=== PATIENT | female | born 1970 | race Caucasian/White ===

== ENCOUNTER 2017-02-06 14:31 | Observation (INO) ==
--- NOTE | 2017-02-06 14:48 | Emergency Department Note ---
Disposition Clinical Impression: Chest pain Disposition: Admitted As Inpatient Condition: Good General Adult HPI - General Chief complaint: ED Chest Pain Stated complaint: Chest Pain SOB Time Seen by Provider: 02/06/17 14:45 Source: patient Limitations: no limitations - History of Present Illness Pain Scale: 5 - Related Data Home Medications Medication Instructions Recorded Confirmed No Known Home Drugs 02/06/17 02/06/17 Allergies Allergy/AdvReac Type Severity Reaction Status Date / Time aspirin AdvReac Wrong entry Verified 02/06/17 18:46 Past Medical History - Past Medical History Medical history: Reports: no medical history Psychiatric history: Reports: depression - Social History Smoking Status: Never smoker Smokeless Tobacco Status: No Alcohol use: Reports: none Drug use: Reports: none Physical Exam - General Limitations: no limitations General appearance: alert, in no apparent distress Course Vital Signs Temperature 98 F 02/06/17 14:33 Pulse Rate 99 02/06/17 14:33 Respiratory Rate 16 02/06/17 14:33 Blood Pressure 185/118 02/06/17 14:33 O2 Sat by Pulse Oximetry 97 02/06/17 14:33 Temperature 98.0 F 02/06/17 19:40 Pulse Rate 78 02/06/17 19:40 Respiratory Rate 16 02/06/17 19:40 Blood Pressure 153/81 02/06/17 19:40 O2 Sat by Pulse Oximetry 98 02/06/17 19:40 Oxygen Delivery Oxygen Delivery Room Air Medical Decision Making - Lab Data Result diagrams: 02/06/17 15:06 02/06/17 15:06 Lab Results 02/06/17 02/06/17 02/06/17 Range/Units 15:06 15:06 15:06 WBC 7.8 (4.3-11.1) K/mcL RBC 4.49 (3.82-4.97) M/mcL Hgb 13.0 (11.5-15.4) g/dL Hct 37.5 (35.3-44.9) % MCV 83.5 (83.0-100.0) fL MCH 29.0 (28.0-33.3) pg MCHC 34.7 (31.6-35.5) g/dL RDW 12.3 (11.5-14.5) % Plt Count 222 (140-400) K/mcL MPV 9.8 (9.4-12.4) fL Immature Gran % 0.3 (0-4) % Seg Neutrophils % 54.9 % Lymphocytes % 34.6 % Monocytes % 7.7 % Eosinophils % 2.1 % Basophils % 0.4 % Neutrophils # 4.3 (1.6-8.9) K/mcL Lymphocytes # 2.7 (0.6-4.6) K/mcL Monocytes # 0.6 (0.0-1.3) K/mcL Eosinophils # 0.2 (0.0-0.6) K/mcL Basophils # 0.0 (0.0-0.2) K/mcL D-Dimer (0-500) ng/mLFEU Sodium 139 (136-145) mEq/L Potassium 4.0 (3.5-4.5) mEq/L Chloride 108 (98-109) mEq/L Carbon Dioxide 21 (19-29) mEq/L BUN 12 (7-20) mg/dL Creatinine 0.82 (0.57-1.11) mg/dL Est GFR ( Amer) > 60 (> 60) Est GFR (Non-Af Amer) > 60 (> 60) BUN/Creatinine Ratio 15 (6-26) Glucose 95 (70-99) mg/dL Calculated Osmolality 288 (280-300) Calcium 8.5 L (8.6-10.8) mg/dL Troponin I (0-0.03) ng/mL B-Natriuretic Peptide < 10 (0-100) pg/mL 02/06/17 02/06/17 Range/Units 15:06 15:06 WBC (4.3-11.1) K/mcL RBC (3.82-4.97) M/mcL Hgb (11.5-15.4) g/dL Hct (35.3-44.9) % MCV (83.0-100.0) fL MCH (28.0-33.3) pg MCHC (31.6-35.5) g/dL RDW (11.5-14.5) % Plt Count (140-400) K/mcL MPV (9.4-12.4) fL Immature Gran % (0-4) % Seg Neutrophils % % Lymphocytes % % Monocytes % % Eosinophils % % Basophils % % Neutrophils # (1.6-8.9) K/mcL Lymphocytes # (0.6-4.6) K/mcL Monocytes # (0.0-1.3) K/mcL Eosinophils # (0.0-0.6) K/mcL Basophils # (0.0-0.2) K/mcL D-Dimer 240 (0-500) ng/mLFEU Sodium (136-145) mEq/L Potassium (3.5-4.5) mEq/L Chloride (98-109) mEq/L Carbon Dioxide (19-29) mEq/L BUN (7-20) mg/dL Creatinine (0.57-1.11) mg/dL Est GFR ( Amer) (> 60) Est GFR (Non-Af Amer) (> 60) BUN/Creatinine Ratio (6-26) Glucose (70-99) mg/dL Calculated Osmolality (280-300) Calcium (8.6-10.8) mg/dL Troponin I 0.00 (0-0.03) ng/mL B-Natriuretic Peptide (0-100) pg/mL Attestation Statement - Attestation Attestation: I examined this patient and my medical decision-making was reviewed with the LUBRICATING SPECIALIST/PA/Advanced Practice Nurse/Resident Physician. I agree with the documented findings, disposition and treatment plan as described except to the extent set forth below. [id number] time provided Patient presents with chest pain. She appears in no acute distress on exam. EKG reviewed by me. Triage vitals indicate hypertension
[2017-02-06] MEDS: Nitroglycerin 0.4 MG TAB.SUBL SL ONE ×3 (15:09→15:23)
[2017-02-06 15:15] LABS: Basophils % 0.4 %; Eosinophils # 0.2 K/mcL (0.0-0.6); Eosinophils % 2.1 %; Hematocrit 37.5 % (35.3-44.9); Immature Granulocytes % 0.3 % (0-4); Lymphocytes # 2.7 K/mcL (0.6-4.6); Lymphocytes % 34.6 %; Mean Corpuscular HGB Conc 34.7 g/dL (31.6-35.5); Mean Corpuscular Volume 83.5 fL (83.0-100.0); Mean Platelet Volume 9.8 fL (9.4-12.4); Monocytes # 0.6 K/mcL (0.0-1.3); Monocytes % 7.7 %; Neutrophils # 4.3 K/mcL (1.6-8.9); Platelet Count 222 K/mcL (140-400); Red Blood Count 4.49 M/mcL (3.82-4.97); Red Cell Distribution Width 12.3 % (11.5-14.5); Segmented Neutrophils % 54.9 %
[2017-02-06 15:36] LABS: BUN/Creatinine Ratio 15 (6-26); Blood Urea Nitrogen 12 mg/dL (7-20); Calcium 8.5 mg/dL (8.6-10.8); Carbon Dioxide 21 mEq/L (19-29); Chloride 108 mEq/L (98-109); Glucose 95 mg/dL (70-99); Osmolality,Calculated 288 (280-300); Sodium 139 mEq/L (136-145); eGFR For African Americans > 60 (> 60); eGFR For Non-African Americans > 60 (> 60)
--- NOTE | 2017-02-06 16:03 | Emergency Department Note ---
Disposition Clinical Impression: Chest pain Qualifiers: Chest pain type: unspecified Qualified Code(s): R07.9 - Chest pain, unspecified Disposition: Admitted As Inpatient Condition: Good Referrals: NO,PCP [Primary Care Provider] - Forms: ED Satisfaction Letter Chest Pain HPI - General Chief Complaint: ED Chest Pain Stated Complaint: Chest Pain SOB Time Seen by Provider: 02/06/17 14:45 Source: patient Limitations: no limitations - History of Present Illness HPI Narrative: Patient here for evaluation of chest pain. Patient states the chest pain began on and has been getting worse in nature. Chest pain is in the middle of her chest described as a pressure that radiates to the left arm as well as the neck. Patient describes a chest pressure that is worse with exertion as well as emotional stress. Patient describes becoming dyspneic upon walking. Patient was told that she had high blood pressure, hypercholesterol, hyperlipidemia previously but chose not to follow up with any kind of care. Presents significantly hypertensive with 6 out of 10 chest pain that both resolved after 3 sublingual nitroglycerin. Patient does not smoke, is not on control, does not follow up previous physician has not had previous cardiac workup. Patient is allergic to aspirin. Severity scale (1-10): 5 - Related Data Home Medications Medication Instructions Recorded Confirmed No Known Home Drugs 02/06/17 02/06/17 Allergies Allergy/AdvReac Type Severity Reaction Status Date / Time aspirin Allergy Unconscious Verified 02/06/17 14:32 All systems ED: reviewed and negative except as stated. Constitutional: Denies: fever, chills Eyes: Denies: eye pain Cardiovascular: Reports: chest pain, dyspnea on exertion Respiratory: Denies: cough, dyspnea Gastrointestinal: Denies: abdominal pain, nausea, vomiting Genitourinary: Denies: urgency, dysuria Musculoskeletal: Denies: back pain Psychiatric: Reports: anxiety Endocrine: Denies: fatigue Chest Pain PMH - Past Medical History Medical history: Reports: no medical history Psychiatric history: Reports: depression - Social History Smoking Status: Never smoker Alcohol use: Reports: none Drug use: Reports: none Physical Exam - General Limitations: no limitations General appearance: alert, in no apparent distress - Head Head exam: atraumatic, normocephalic - Eye Eye exam: Present: normal appearance - ENT ENT exam: normal exam, normal oropharynx - Neck Neck exam: Present: normal inspection, full ROM - Chest Chest inspection: Present: normal inspection, symmetric chest wall rise. Absent : tenderness - Respiratory Respiratory exam: Present: normal lung sounds bilaterally. Absent: respiratory distress, wheezes - Cardiovascular Cardiovascular exam: Present: regular rate, normal rhythm - Abdominal Exam Abdominal exam: Present: soft, Non-Tender - Extremities Exam Extremities exam: Present: normal inspection. Absent: tenderness - Back Exam Back exam: Present: normal inspection. Absent: tenderness - Neurological Exam Neurological exam: Present: alert, oriented X3, CN II-XII intact - Psychiatric Psychiatric exam: Present: normal affect, normal mood - Skin Skin exam: Present: warm, dry, intact Course - Reevaluation(s) Reevaluation #1: EKG and blood work without acute changes. Patient tells concerning story including uncontrolled risk factors and family history. . - Consultations Consultation #1: Discussed with hospitalist Fabricio. Patient accepted. Vital Signs Temperature 98 F 02/06/17 14:33 Pulse Rate 99 02/06/17 14:33 Respiratory Rate 16 02/06/17 14:33 Blood Pressure 185/118 02/06/17 14:33 O2 Sat by Pulse Oximetry 97 02/06/17 14:33 Temperature 98 F 02/06/17 14:33 Pulse Rate 80 02/06/17 16:47 Respiratory Rate 13 02/06/17 16:47 Blood Pressure 157/113 02/06/17 16:47 O2 Sat by Pulse Oximetry 97 02/06/17 16:47 Oxygen Delivery Oxygen Delivery Room Air Chest Pain - Lab Data Result diagrams: 02/06/17 15:06 02/06/17 15:06 Lab Results 02/06/17 02/06/17 02/06/17 Range/Units 15:06 15:06 15:06 WBC 7.8 (4.3-11.1) K/mcL RBC 4.49 (3.82-4.97) M/mcL Hgb 13.0 (11.5-15.4) g/dL Hct 37.5 (35.3-44.9) % MCV 83.5 (83.0-100.0) fL MCH 29.0 (28.0-33.3) pg MCHC 34.7 (31.6-35.5) g/dL RDW 12.3 (11.5-14.5) % Plt Count 222 (140-400) K/mcL MPV 9.8 (9.4-12.4) fL Immature Gran % 0.3 (0-4) % Seg Neutrophils % 54.9 % Lymphocytes % 34.6 % Monocytes % 7.7 % Eosinophils % 2.1 % Basophils % 0.4 % Neutrophils # 4.3 (1.6-8.9) K/mcL Lymphocytes # 2.7 (0.6-4.6) K/mcL Monocytes # 0.6 (0.0-1.3) K/mcL Eosinophils # 0.2 (0.0-0.6) K/mcL Basophils # 0.0 (0.0-0.2) K/mcL D-Dimer (0-500) ng/mLFEU Sodium 139 (136-145) mEq/L Potassium 4.0 (3.5-4.5) mEq/L Chloride 108 (98-109) mEq/L Carbon Dioxide 21 (19-29) mEq/L BUN 12 (7-20) mg/dL Creatinine 0.82 (0.57-1.11) mg/dL Est GFR ( Amer) > 60 (> 60) Est GFR (Non-Af Amer) > 60 (> 60) BUN/Creatinine Ratio 15 (6-26) Glucose 95 (70-99) mg/dL Calculated Osmolality 288 (280-300) Calcium 8.5 L (8.6-10.8) mg/dL Troponin I (0-0.03) ng/mL B-Natriuretic Peptide < 10 (0-100) pg/mL 02/06/17 02/06/17 Range/Units 15:06 15:06 WBC (4.3-11.1) K/mcL RBC (3.82-4.97) M/mcL Hgb (11.5-15.4) g/dL Hct (35.3-44.9) % MCV (83.0-100.0) fL MCH (28.0-33.3) pg MCHC (31.6-35.5) g/dL RDW (11.5-14.5) % Plt Count (140-400) K/mcL MPV (9.4-12.4) fL Immature Gran % (0-4) % Seg Neutrophils % % Lymphocytes % % Monocytes % % Eosinophils % % Basophils % % Neutrophils # (1.6-8.9) K/mcL Lymphocytes # (0.6-4.6) K/mcL Monocytes # (0.0-1.3) K/mcL Eosinophils # (0.0-0.6) K/mcL Basophils # (0.0-0.2) K/mcL D-Dimer 240 (0-500) ng/mLFEU Sodium (136-145) mEq/L Potassium (3.5-4.5) mEq/L Chloride (98-109) mEq/L Carbon Dioxide (19-29) mEq/L BUN (7-20) mg/dL Creatinine (0.57-1.11) mg/dL Est GFR ( Amer) (> 60) Est GFR (Non-Af Amer) (> 60) BUN/Creatinine Ratio (6-26) Glucose (70-99) mg/dL Calculated Osmolality (280-300) Calcium (8.6-10.8) mg/dL Troponin I 0.00 (0-0.03) ng/mL B-Natriuretic Peptide (0-100) pg/mL Heart Score - Score History: Highly Suspicious EKG: Non Specific repolarisation Disturbance Age: 45-65 Risk Factors: Equal/Greater than 3 risk factor or history of atherosclerotic disease Troponin: Less than normal limit HEART Score Total: 6
[2017-02-06] MEDS ORDERED: Nitroglycerin 1 INCH/GM PACKET TP ONE (16:29)
[2017-02-06] MEDS ORDERED: *HR* Morphine 2 MG/ML SYRINGE IVP PRN (17:50)
[2017-02-06] MEDS ORDERED: *HR* OxyCODONE Immed Rel 5 MG TABLET PO PRN (17:50)
[2017-02-06] MEDS ORDERED: Naloxone 0.4 MG/ML INJ IVP PRN (17:50)
[2017-02-06] MEDS ORDERED: Acetaminophen 325 MG TABLET PO PRN (17:50)
[2017-02-06] MEDS ORDERED: Ondansetron 4 MG/2 ML VIAL IVP PRN (17:50)
[2017-02-06] MEDS ORDERED: GI Cocktail 40 ML EACH PO ONE (17:56)
[2017-02-06] MEDS ORDERED: Ondansetron 4 MG/2 ML VIAL IVP ONE (18:17)
[2017-02-06] MEDS ORDERED: *HR* HYDROmorphone (PF) 1 MG/ML SYRINGE IV ONE (18:17)
--- NOTE | 2017-02-06 18:19 | Internal Med History&Physical ---
Date of Encounter: 02/06/17 Time of Encounter: 18:19 Assessment and Plan (1) Hypertensive urgency Current visit: Yes Status: Acute BP on presentation 185/118 , improved after 2 nitros Start patient on HCTZ it is likely her chest pain is due to this EKG is non-ischemic CXR is WNL Patient with multiple risk factors and significant Family hx-her younger brother had triple bypass PATIENT HAS NOT TAKEN ASPIRIN since the age of 3, and this is because her mother told her not to, after she ingested a bottle of ASA at the age of 3 Will give ASA 325mg STAT as its benefits outweigh the risks Continue ASA 81mg daily Trend trops Obtain ECHO and Stress test a.m NPO frm MN Check for other risk factors, check A1C, Lipid panel Stephen of care discussed with patient and her spouse at the bedside, verbalized understanding (2) Chest pain Current visit: Yes Status: Acute Qualifiers: Chest pain type: unspecified Qualified Code(s): R07.9 - Chest pain, unspecified Internal Medicine - H&P: HPI Chief complaint: Chest pain Admitted From: Home Plans for Post Hospital Care: Home History of present illness: Ms. White is a 46 year old female Evaluated at bedside with her spouse Admitted with complains of chest pain, started 3 days prior to presentation, sub -sternal location, pounding/burning in nature, radiates to the neck and left arm. Associated with SOB on exertion. Pain scale 1-5. Not associated with meals. She is a known PMH of HTN, HLD, Obesity she does not follow up with care with any physician She was recently on 02/03 told at her school during a free michael check that she is hypertensive Patient thinks her chest pain feels like gas and has not been completely relieved by nitro Patient takes no medications at home and states she has allergies to aspirin She denies diaphoresis, palpitations, or neurological complains She denies GI complains ROS is otherwise unremarkable Of note, VS have revealed elevated blood pressures up to 185/11) on admission CXR is no acute processes; EKG shows non-ischemic findings. CBC, chem, initial trop negative Past Med Surg Social Fam HX - Past Medical History Medical history: hyperlipidemia, hypertension Psychiatric history: depression - Social History Smoking Status: Never smoker Smokeless Tobacco Status: No Alcohol use: none Drug use: none - Family History Brother Hx Family Cardiac Disorders: Yes Internal Medicine - H&P: Meds No Known Home Drugs 02/06/17 [History] Allergies aspirin Adverse Reaction (Verified 02/06/17 18:46) Wrong entry Patient reports consuming a bottle of aspirin as a 3 year old and was told by her mother never to use Aspirin. All Systems PM: A 10-system review of systems was performed and is negative for pertinent findings except as documented above in the HPI. - Constitutional Constitutional: no chills, no fever(s), no night sweats - EENT Eyes: no change in vision, no discharge, no pain, no photophobia Ears: no ear discharge, no ear pain, no tinnitus Nose, mouth and throat: no dysphagia, no nasal discharge, no neck pain, no sore throat - Cardiovascular Cardiovascular ROS IM: as per HPI - Respiratory Respiratory: no cough, no dyspnea, no wheezing, no excessive phlegm production - Gastrointestinal Gastrointestinal: no abdominal pain, no diarrhea, no hematemesis, no hematochezia, no melena, no nausea, no vomiting - Genitourinary Genitourinary: no change in urinary stream, no dysuria, no flank pain, no hematuria - Musculoskeletal Musculoskeletal ROS IM: no numbness, no tingling - Integumentary Integumentary IM: no rash, no unusual bruising - Neurological Neurological ROS: no confusion, no convulsions, no focal weakness, no numbness, no tingling, no tremor(s) - Hematologic/Lymphatic Hematologic/Lymphatic: no easy bruising - Constitutional Vitals: Temp Pulse Resp BP Pulse Ox 98 F 80 14 157/90 98 02/06/17 14:33 02/06/17 17:48 02/06/17 17:48 02/06/17 17:48 02/06/17 17:48 Physical Exam Gen: Morbidly Obese, not in any form of distress, speaks full sentences VS on admission, BP 185/118 to 157/113,HR WNL, O2Sat WNL HEENT: Moist oral mucosa, MIKA, EOMI, NO JVD Chest: CTAB, no chest wall tenderness Heart: S1, S2 only, no m/g/r Abdomen: Obese, not tender, no palpably enlarged organs Extremities: No edema General appearance: Present: A&O X 3, pleasant, no acute distress Internal Med - H&P Results - Labs CBC & Chem 7: 02/06/17 15:06 02/06/17 15:06 Labs: Labs and Imaging reviewed CBC/Chem Unremarkable CXR: Clear EKG: NSR, no ischemic changes - EKG Data -: EKG Interpreted by Myself EKG shows normal: sinus rhythm, axis (Normal) Rate: normal - EKG Data Prior EKG available for review: no Interpretation IM: normal EKG
[2017-02-06] MEDS ORDERED: Aspirin 325 MG TABLET PO ONE (18:44)
[2017-02-06] MEDS: hydroCHLOROthiazide 25 MG TABLET PO SCH (20:28)
[2017-02-06] MEDS: *HR* Heparin 5,000 UNIT/ML VIAL SQ SCH (21:56)
[2017-02-07 04:52] LABS: Hemoglobin A1C 4.7 %
[2017-02-07 04:54] LABS: Chol/HDL Ratio 5.1 (0-4.9)
[2017-02-07] MEDS: *HR* Heparin 5,000 UNIT/ML VIAL SQ SCH (05:23)
[2017-02-07] MEDS ORDERED: Regadenoson 0.4 MG/5 ML SYRINGE IVP ONE (07:19)
[2017-02-07] MEDS ORDERED: Aspirin 81 MG TAB.CHEW PO SCH (09:00)
[2017-02-07] MEDS: hydroCHLOROthiazide 25 MG TABLET PO SCH (09:35)
[2017-02-07 10:48] VITALS: BP 138/89
--- NOTE | 2017-02-07 11:30 | Nuclear Medicine Stress Report ---
Exercise Nuclear Stress Name: Seble Sharma Masters Date of Study: 02/07/2017 Date: 1970 Ht: 66.0 in Medical Record#: [id number] Age: 46 Wt: 250.0 lb Gender: Female Order #: [id number] [facility] Supervising Provider: Tad Sargent CNP Reading Physician: Boni Mujica DO, FACC, FASE, FASNC Ordering Physician: Jonah Robledo MD Primary Care Physician: Cedrick Mccarthy MD Stress Technologist: Catrachita La RRT, CPFT Sprayer Machine: Dasha Joseph Indications: Chest Pain Impression: Exercise ECG is negative for ischemia. Good exercise capacity. No chest pain. Gated EF = 72%. Perfusion imaging was negative for ischemia or infarct. Stress Test Summary: Stress Test Type: Treadmill Protocol: Jose David Baseline Information: Initial Heart Rate: 92 Blood Pressure: 122/82 Stress Information: Stress Time: 8 min 10 sec Test Terminated Due to (primary): Dyspnea Fatigue Maximum Blood Pressure: 188/72 Maximum Heart Rate: 149 Percent Maximum Heart Rate Achieved: 87 Double Product: [id number] METS Reached: 10.1 Symptoms: Shortness of breath, Fatigue Nuclear Summary: SPECT myocardial perfusion imaging using Tc99m Sestamibi given intravenously was performed at rest and following cardiac stress testing. The resting images were obtained following initial dose of 11.3 mCi. Following stress an additional dose of 30.2 mCi was given at peak exercise or 30 seconds post regadenoson infusion. Medication Given: Time Medication Dose Units Route Findings: Stress Note * Resting ECG demonstrated normal sinus rhythm. * Rare PVCs noted prior to exam beginning. * Exercise ECG is negative for ischemia. * Occasional PVCs noted during early exercise, none thereafter. * The exercise capacity was good. * Patient had no chest pain during stress. * Normal hemodynamic responses to exercise. Study Quality * Study quality is good. Gated EF % * Gated EF = 72%. Left Ventricle * The left ventricle is not dilated. LVEDV = 93 mL. NORMALS * Normal wall motion. * Normal segmental perfusion in rest. * Normal segmental perfusion in stress. TID * No evidence of transient ischemic dilatation. TID ratio = 0.74. Lung Uptake * There is no evidence of increase lung uptake. Updated by Boni Mujica DO, FACChip, ANN, HERIBERTO on 02/07/2017 11:25:37 AM electronically signed on 02/07/2017 11:27:04 AM with status of Final
--- NOTE | 2017-02-07 12:09 | Discharge Summary ---
Date of Encounter: 02/07/17 Time of Encounter: 12:07 - Discharge Diagnosis (1) Hypertensive urgency Priority: Primary Status: Resolved (2) Chest pain Priority: Primary Status: Acute Qualifiers: Chest pain type: unspecified Qualified Code(s): R07.9 - Chest pain, unspecified - Discharge Medications Prescriptions: Aspirin 81 mg PO DAILY #30 tab.chew Hydrochlorothiazide 25 mg PO DAILY #30 tablet Home Medications: Aspirin 81 mg PO DAILY #30 tab.chew 02/07/17 [Rx] Hydrochlorothiazide 25 mg PO DAILY #30 tablet 02/07/17 [Rx] Allergies/Adverse Reactions: Allergies aspirin Adverse Reaction (Verified 02/06/17 18:46) Wrong entry Patient reports consuming a bottle of aspirin as a 3 year old and was told by her mother never to use Aspirin. Procedures/tests Complete & Pending: Procedures Performed prior 72 hours Category Date Time Status NM hiro perf SPECT multi [NM] Routine Exams 02/06/17 17:52 Taken EV echocardiogram Routine Y 02/07/17 17:53 Completed SP exercise nuclear stress Routine Y 02/07/17 07:30 Completed Date of admission: 02/06/17 17:09 Primary care physician: PCP ALYSON Discharging clinician: Nick Small Anticipated date of discharge: 02/07/17 - Patient Status Disposition: Home, Self-Care Condition: Good Functional capacity at discharge: independent ambulation Overall status at discharge: patient is back to baseline - Discharge Instructions Instructions: Hydrochlorothiazide (By mouth), Aspirin (By mouth), Hypertensive Crisis (DC) Follow Up With: NO,PCP [Primary Care Provider] - (Please follow up at [facility] on 02/09/17 as previously scheduled.) - Diet and Activity Activity: resume usual activities as tolerated Diet: low salt diet Interval History: See below Hospital course: Ms. White is a 46 year old female with recently diagnosed HTN and HLD who presented with complains of chest pain BP was found to be elevated and uncontrolled at presentation Chest pain work up unremarkable, ECHO and Stress test negative for ischemia or valvular abnormalities HTN was controlled with HCTZ, discharge on same A1C WNL, Lipid panel with mild Hypertriglyceridemia,lifestyle modification encouraged Stable for discharge home, follow up with PCP - Time Spent with Patient Total time spent providing and/or coordinating discharge services: Less than 30 minutes - Constitutional Vitals: Temp Pulse Resp BP Pulse Ox 97.4 F L 84 17 138/89 93 L 02/07/17 10:45 02/07/17 10:45 02/07/17 10:45 02/07/17 10:45 02/07/17 10:45 General appearance: Present: A&O X 3, pleasant, no acute distress, obese - Head Head exam: Present: atraumatic, normocephalic - Eye Eye exam: Present: PERRL, conjuntiva pink, sclera anicteric Pupils: Present: PERRL - Neck Neck exam general surgery: Present: supple, trachea midline. Absent: lymphadenopathy - Respiratory Respiratory exam: Present: CTAB. Absent: accessory muscle use, rales, rhonchi, wheezes - Cardiovascular Cardiovascular exam: Present: RRR, +S1, +S2. Absent: diastolic murmur, gallop, rubs, systolic murmur - GI/Abdominal GI/Abdominal exam: Present: normal bowel sounds, soft, no peritoneal signs. Absent: distended, tenderness - Extremities Exam Extremities exam: Present: warm, radial pulses palpable and symetrical. Absent : calf tenderness, cyanotic, pedal edema - Neurological Exam Neurological exam: Present: CN II-XII intact, oriented X3, no focal deficits. Absent: pronater drift, facial droop, speech deficit - Skin Skin exam: Present: dry, intact
--- NOTE | 2017-02-07 12:24 | ECHO - Doppler Report ---
Echocardiogram Name: Seble Sharma Masters Date of Study: 02/07/2017 Date: 1970 Ht: 66.0 in Medical Record#: [id number] Age: 46 Wt: 259.0 lb Gender: Female BSA: 2.23 Order #: [id number] Location: [facility] Room #: [id number] Reading Physician: Boni Mujica DO, NAYA, HERIBERTO JUAREZ Surveillance Inspector: Afshan Beasley Ordering Physician: Nick Small MD Primary Physician: Cedrick Mccarthy MD Indications: Chest pain Impressions: Technically sub-optimal due to poor echocardiographic windows. LVEF 60-65%. Mild concentric left ventricular hypertrophy. Normal LV chamber size and function. Mild left ventricular diastolic dysfunction. Normal right ventricular structure and function. Unable to estimate RVSP due to lack of adequate TR jet. No significant valvular dysfunction. Left Ventricular Wall Motion: Rest Echo Findings All wall segments showed normal motion. Findings: Study Quality * Technically sub-optimal due to poor echocardiographic windows. ECG Findings * Normal sinus rhythm. Left Ventricle * LVEF 60-65%. * Normal LV chamber size and function. * Mild concentric left ventricular hypertrophy. * Mild left ventricular diastolic dysfunction. Right Ventricle * Normal right ventricular structure and function. Left Atrium * Normal left atrial size. Right Atrium * Normal right atrial size. Interatrial Septum * Interatrial septum not well evaluated. Aortic Valve * Aortic valve not well visualized. * No aortic regurgitation. * No aortic stenosis. Mitral Valve * Normal mitral valve structure and function. * No mitral regurgitation. * No mitral stenosis. Tricuspid Valve * Normal tricuspid valve structure and function. * No tricuspid regurgitation. * Unable to estimate RVSP due to lack of adequate TR jet. Pulmonic Valve * Pulmonic valve is not well visualized. * No pulmonic regurgitation. Aorta * Normally sized aortic root. Pericardium * The pericardium appears normal. IVC * Normal IVC dimensions and inspiratory collapse. Pulmonary Artery * Normal visualized portions of the main pulmonary artery. History Family History of CAD Measurements: BP: 122/ 60 2D Normal Values RVIDd: 2.90 cm <2.7 cm IVSd: 1.30 cm 0.6 - 1.0 cm LVIDd: 4.40 cm 3.7 - 5.6 cm LVPWd: 1.30 cm 0.6 - 1.1 cm LVIDs: 3.00 cm 1.5 - 3.6 cm AO: 2.60 cm < 4.0 cm LA: 3.00 cm 2.0 - 4.0cm %FS: 31.80 cm >25 % LA volume: 41 Mitral Valve Peak E:.56 m/sec Peak A:.79 m/sec E/A Ratio:0.7 Peak E' Lat Patric:7.51 cm/s Peak E' Med Patric:8.68 cm/s E/E' Lat Ratio:7.5 Tricuspid Valve TV Regurg Peak Grad: 4.00mmHg TV Regurg Peak Patric: 1.06m/sec Updated by Boni Mujica DO, NAYA, HERIBERTO JUAREZ on 02/07/2017 12:19:26 PM electronically signed on 02/07/2017 12:20:07 PM with status of Final Wall Motion [place]: 1=Normal, 2=Hypokinesis, 3=Akinesis, 4=Dyskinesis, 5=Aneurysmal, 6=Hyperkinetic, X=Not Visualized (Blank)=Missing
--- NOTE | 2017-02-07 15:35 | Electrocardiograph Report ---
[place] [id number] Test Date: 2017-02-06 Pat Name: Seble Masters Department: 102 Room: 3B Gender: F Procurement Engineer: : 1970 Requested By: Nick Small Order Number: [id number] Reading MD: Jose David Escamilla MD Measurements Intervals [place] Rate: 100 P: 25 [place]: 164 QRS: 12 QRSD: 85 T: 28 QT: 337 QTc: 394 Interpretive Statements SINUS TACHYCARDIA Poor R wave progression BASELINE ARTIFACT Electronically Signed On 02-07-2017 15:33:41 EDT by Jose David Escamilla MD
--- NOTE | 2017-02-07 15:39 | Electrocardiograph Report ---
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
== END 2017-02-07 12:30 | disposition home or self-care (01) ==
LOC: EMEROO 14:31 → 3BNU 14:31 → SUATTDRO 17:09 → 3BNU 19:16
PROVIDERS: ADMIT Nurse Practitioner Acute Care; ATTEND Internal Medicine

== ENCOUNTER 2021-12-27 10:23 | Observation (INO) ==
[2021-12-27] MEDS ORDERED: Ondansetron 4 MG/2 ML VIAL IVP ONE (10:48)
[2021-12-27] MEDS ORDERED: 0.9 % Sodium Chloride 1,000 ML IV ONE (10:48)
[2021-12-27 11:13] LABS: Basophils % 0.3 %; Eosinophils # 0.1 K/mcL (0.0-0.6); Eosinophils % 1.1 %; Hematocrit 39.2 % (35.3-44.9); Immature Granulocytes % 0.4 % (0-4); Lymphocytes # 2.3 K/mcL (0.6-4.6); Lymphocytes % 20.6 %; Mean Corpuscular HGB Conc 35.7 g/dL (31.6-35.5); Mean Corpuscular Hemoglobin 29.5 pg (28.0-33.3); Mean Corpuscular Volume 82.5 fL (83.0-100.0); Mean Platelet Volume 9.9 fL (9.4-12.4); Monocytes # 0.6 K/mcL (0.0-1.3); Monocytes % 5.5 %; Neutrophils # 8.1 K/mcL (1.6-8.9); Platelet Count 232 K/mcL (140-400); Red Blood Count 4.75 M/mcL (3.82-4.97); Red Cell Distribution Width 12.4 % (11.5-14.5); Segmented Neutrophils % 72.1 %; White Blood Count 11.2 K/mcL (4.3-11.1)
[2021-12-27 11:33] LABS: Alanine Aminotransferase 17 Units/L (7-52); Albumin 4.5 g/dL (3.5-5.7); Albumin/Globulin Ratio 1.4 (1.1-2.2); Alkaline Phosphatase 69 Units/L (34-104); Amylase 23 Units/L (29-103); Aspartate Amino Transferase 12 Units/L (13-39); BUN/Creatinine Ratio 14 (6-26); Bilirubin,Total 0.6 mg/dL (0.3-1.0); Blood Urea Nitrogen 11 mg/dL (6-20); Calcium 9.5 mg/dL (8.6-10.3); Carbon Dioxide 25 mEq/L (23-29); Chloride 101 mEq/L (98-107); Globulin 3.3 g/dL (2.4-3.5); Glucose 115 mg/dL (70-105); Lipase 15 Units/L (11-82); Osmolality,Calculated 280 (280-300); Potassium 3.6 mEq/L (3.5-5.1); Sodium 135 mEq/L (136-145); Total Protein 7.8 g/dL (6.4-8.9); eGFR For African Americans > 60 (> 60); eGFR For Non-African Americans > 60 (> 60)
[2021-12-27 11:36] LABS: Bilirubin,Urine Negative (Negative); Blood,Urine Negative (Negative); Clarity,Urine Turbid (Clear); Color,Urine Yellow (Yellow); Glucose,Urine (UA) Normal (Normal); Hyaline Casts,Urine Few per lpf (None Seen); Ketones,Urine Negative (Negative); Leukocyte Esterase,Urine Trace (Negative); Mucus,Urine Moderate per lpf (None-Few); Nitrite,Urine Negative (Negative); PH,Urine 5.5 pH Units (5.0-8.0); Protein,Urine 30 mg/dL (Neg-Trace); RBC,Urine 0-3 per hpf (0-3); Specific Gravity,Urine > 1.030 (1.010-1.025); Squamous Epithelial Cell,Urine Many per hpf (None-Few); Urobilinogen,Urine Normal (Normal)
[2021-12-27] MEDS ORDERED: Isovue-370 500 ML BOTTLE IVP ONE (11:51)
[2021-12-27] MEDS ORDERED: *HR* FentaNYL (PF) 100 MCG/2 ML VIAL IVP ONE (13:27)
[2021-12-27] MEDS ORDERED: Piperacillin/Tazobactam 3.375 GM in 0.9 % Sodium Chloride Mini Bag 100 ML IVP ONE (13:27)
[2021-12-27 14:30] LABS: Influenza A PCR Negative (Negative); Influenza B PCR Negative (Negative); Resp. Syncytial Virus PCR Negative (Negative)
[2021-12-27 14:46] LABS: SARS-CoV-2 by PCR (In House) Negative (Negative)
[2021-12-27] MEDS ORDERED: *HR* HYDROmorphone PF 0.5 MG/0.5 ML SYRINGE IVP PRN (17:47)
[2021-12-27] MEDS ORDERED: Ondansetron 4 MG/2 ML VIAL IVP PRN ×3 (17:47→21:45)
[2021-12-27] MEDS ORDERED: Metoclopramide 10 MG/2 ML VIAL IVP PRN (17:47)
[2021-12-27] MEDS ORDERED: *HR* FentaNYL (PF) 100 MCG/2 ML VIAL IVP PRN (17:47)
[2021-12-27] MEDS ORDERED: Ampicillin/Sulbactam 3,000 MG in 0.9 % Sodium Chloride Mini Bag 100 ML IVPB SCH (18:00)
[2021-12-27] MEDS ORDERED: Lidocaine HCL 4 ML Topical Solution (Laryng-O-Jet Kit Sterile Pak) TP ONE (19:09)
[2021-12-27] MEDS ORDERED: *HR* FentaNYL (PF) 100 MCG/2 ML VIAL ONE (19:12)
[2021-12-27] MEDS ORDERED: *HR* Propofol 200 MG/20 ML VIAL IVP ONE (19:12)
[2021-12-27] MEDS ORDERED: *HR* Midazolam HCl 2 MG/2 ML VIAL ONE (19:12)
[2021-12-27] MEDS ORDERED: Ketamine HCL *QUVA* 50mg (1mL) SYRINGE ONE (19:13)
[2021-12-27] MEDS ORDERED: *HR* HYDROMORPHONE 2 MG/ML VIAL ONE (19:14)
[2021-12-27] MEDS ORDERED: *HR* Magnesium Sulfate 1 GM/2 ML VIAL ONE (19:15)
[2021-12-27] MEDS ORDERED: *HR* Succinylcholine 200 MG/10 ML VIAL IVP ONE (19:16)
[2021-12-27] MEDS ORDERED: Lidocaine -MPF 2% 5 ML VIAL ONE (19:16)
[2021-12-27] MEDS ORDERED: *HR* Rocuronium Bromide 50 MG/5 ML VIAL ONE (19:16)
[2021-12-27] MEDS ORDERED: Ondansetron 4 MG/2 ML VIAL ONE (19:16)
[2021-12-27] MEDS ORDERED: *HR* Vasopressin 20 UNIT/ML VIAL ONE (19:19)
[2021-12-27] MEDS ORDERED: Isovue-300 50ML VIAL ONE (19:28)
[2021-12-27] MEDS ORDERED: Acetaminophen IV 1,000 MG/100 ML BAG IVPB ONE (19:53)
[2021-12-27] MEDS ORDERED: Ketorolac 30 MG/ML VIAL ONE (20:02)
[2021-12-27] MEDS: 0.9 % Sodium Chloride 1,000 ML IVC SCH (22:51)
[2021-12-27] MEDS: Acetaminophen IV 1,000 MG/100 ML BAG IVPB SCH (23:15)
[2021-12-27] MEDS: Ketorolac 30 MG/ML VIAL IVP SCH (23:38)
[2021-12-27] MEDS: Ampicillin/Sulbactam 3,000 MG in 0.9 % Sodium Chloride Mini Bag 100 ML IVPB SCH (23:39)
[2021-12-28] MEDS ORDERED: Ketorolac 30 MG/ML VIAL IVP SCH
[2021-12-28 04:17] LABS: Basophils % 0.1 %; Immature Granulocytes % 0.2 % (0-4); Lymphocytes # 1.1 K/mcL (0.6-4.6); Lymphocytes % 11.3 %; Mean Corpuscular HGB Conc 34.2 g/dL (31.6-35.5); Mean Corpuscular Hemoglobin 29.3 pg (28.0-33.3); Mean Corpuscular Volume 85.6 fL (83.0-100.0); Monocytes # 0.1 K/mcL (0.0-1.3); Monocytes % 1.4 %; Neutrophils # 8.2 K/mcL (1.6-8.9); Platelet Count 216 K/mcL (140-400); Red Blood Count 4.44 M/mcL (3.82-4.97); Red Cell Distribution Width 12.3 % (11.5-14.5); White Blood Count 9.4 K/mcL (4.3-11.1)
[2021-12-28] MEDS: Acetaminophen IV 1,000 MG/100 ML BAG IVPB SCH ×2 (06:01→12:14)
[2021-12-28] MEDS: Ampicillin/Sulbactam 3,000 MG in 0.9 % Sodium Chloride Mini Bag 100 ML IVPB SCH ×2 (06:16→12:13)
[2021-12-28] MEDS: Ketorolac 30 MG/ML VIAL IVP SCH ×2 (06:16→12:10)
[2021-12-28] MEDS ORDERED: hydroCHLOROthiazide 25 MG TABLET PO SCH (09:00)
[2021-12-28] MEDS: 0.9 % Sodium Chloride 1,000 ML IVC SCH (09:04)
[2021-12-28 11:03] VITALS: BP 125/79; PULSE 79; TEMP 97.8; O2SAT 93
== END 2021-12-28 15:22 | disposition home or self-care (01) ==
LOC: 3BNU 10:23 → EMEROOARM 10:23 → 3BNU 15:00
PROVIDERS: ADMIT Surgery; ATTEND Surgery